=== PATIENT | male | born 1975 | race Two or more races ===

== ENCOUNTER 2018-08-26 18:15 | Emergency (ER) | payer OTHER ==
[2018-08-26 18:59] LABS: BASOPHILS % (AUTO) 0.3 % (0.0-5.0); EOSINOPHILS % (AUTO) 0.3 % (0.0-8.0); HEMATOCRIT 44.6 % (42-54); LYMPHOCYTES % (AUTO) 7.6 % (21.0-51.0); MEAN CORPUSCULAR HEMOGLOBIN 32.9 pg (27.0-33.0); MEAN CORPUSCULAR HGB CONC 34.5 g/dL (32.0-36.0); MEAN CORPUSCULAR VOLUME 95.3 fL (79-99); MONOCYTES % (AUTO) 8.8 % (3.0-13.0); PLATELET COUNT (AUTO) 261 K/uL (130-400); RED BLOOD CELL COUNT(AUTO) 4.68 MIL/uL (4.50-6.20); RED CELL DISTRIBUTION WIDTH 12.3 % (11.0-15.5); WHITE BLOOD COUNT (AUTO) 11.8 K/uL (4.8-10.8)
[2018-08-26 19:11] LABS: CREATININE 1.6 mg/dL (0.5-1.5); POTASSIUM 4.2 mmol/L (3.5-5.1)
[2018-08-26] MEDS ORDERED: SODIUM CHLORIDE 0.9% 1000ML 1,000 ML IV ONE (19:24)
[2018-08-26] MEDS ORDERED: ACETAMINOPHEN 325 MG TAB ONE (19:24)
[2018-08-26] MEDS ORDERED: INSULIN HUMULIN R 100 UNIT/ML 3ML ONE (19:53)
[2018-08-26] MEDS ORDERED: CEFTRIAXONE SODIUM 1 GM ONE (20:52)
[2018-08-26] MEDS ORDERED: SODIUM CHLORIDE 0.9% 50 ML IV ONE (20:52)
[2018-08-26 21:00] LABS: APPEARANCE,URINE Clear (CLEAR); BILIRUBIN,URINE Negative (NEGATIVE); COLOR,URINE Yellow (YELLOW); GLUCOSE, URINE (UA) >=1000 mg/dL (NEGATIVE); KETONES,URINE Trace mg/dL (NEGATIVE); LEUKOCYTE ESTERASE ,URINE Negative (NEGATIVE); NITRATE,URINE Negative (NEGATIVE); OCCULT BLOOD,URINE Negative (NEGATIVE); PROTEIN,URINE Negative (NEGATIVE); UROBILINOGEN,URINE 0.2 mg/dL (0.2-1.0)
[2018-08-26 21:16] LABS: BACTERIA,URINE Rare /HPF (None Seen); RBC,URINE None Seen /HPF (0-1); SQUAMOUS EPITHELIAL CELL,UR None Seen /HPF (0-2); WBC,URINE 0-1 /HPF (0-1)
== END 2018-08-26 21:13 | disposition home or self-care (01) ==
LOC: EDH 18:15
DX: N50.812 Left testicular pain (principal); E11.9 Type 2 diabetes mellitus without complications; E78.5 Hyperlipidemia, unspecified; Z87.891 Personal history of nicotine dependence
CPT/HCPCS: 36415; 76870; 80048; 81001; 85025; 96374; 96375; 99285; J0696; J1815; J7030

== ENCOUNTER 2018-08-28 10:41 | Inpatient (IN) | payer OTHER ==
[~2018-08-28] VITALS: Ht 182.9 cm; Wt 98.9 kg
[2018-08-28 12:12] LABS: BASOPHILS % (AUTO) 0.4 % (0.0-5.0); EOSINOPHILS % (AUTO) 0.2 % (0.0-8.0); HEMATOCRIT 41.4 % (42-54); LYMPHOCYTES % (AUTO) 4.7 % (21.0-51.0); MEAN CORPUSCULAR HEMOGLOBIN 32.9 pg (27.0-33.0); MEAN CORPUSCULAR HGB CONC 34.8 g/dL (32.0-36.0); MEAN CORPUSCULAR VOLUME 94.5 fL (79-99); MONOCYTES % (AUTO) 8.7 % (3.0-13.0); PLATELET COUNT (AUTO) 234 K/uL (130-400); RED BLOOD CELL COUNT(AUTO) 4.38 MIL/uL (4.50-6.20); RED CELL DISTRIBUTION WIDTH 12.2 % (11.0-15.5); WHITE BLOOD COUNT (AUTO) 15.3 K/uL (4.8-10.8)
[2018-08-28] MEDS ORDERED: ONDANSETRON HCL 4 MG/2 ML VIAL ONE (12:16)
[2018-08-28] MEDS ORDERED: MORPHINE SULFATE 4 MG/1ML SYG ONE ×2 (12:17→15:59)
[2018-08-28] MEDS ORDERED: SODIUM CHLORIDE 0.9% 1000ML 1,000 ML IV ONE ×2 (12:17→16:51)
[2018-08-28 12:18] LABS: CREATININE 1.7 mg/dL (0.5-1.5); POTASSIUM 5.3 mmol/L (3.5-5.1)
[2018-08-28] MEDS ORDERED: IOHEXOL-350 75 ML VIAL IV ONE (12:21)
[2018-08-28] MEDS ORDERED: ZOSYN 3.375GM+NS 50ML 50 ML IV ONE (15:54)
[2018-08-28] MEDS ORDERED: SODIUM CHLORIDE 0.9% 50 ML IV ONE (15:55)
[2018-08-28] MEDS: SODIUM CHLORIDE 0.9% 1000ML 1,000 ML IV SCH (16:20)
[2018-08-28] MEDS ORDERED: HYDRALAZINE HCL 20 MG/ML VIAL IV PRN (16:30)
[2018-08-28] MEDS ORDERED: VANCOMYCIN PROTOCOL PER PHARMACY IV PRN (16:30)
[2018-08-28] MEDS ORDERED: ONDANSETRON HCL 4 MG/2 ML VIAL IV PRN (16:30)
[2018-08-28] MEDS ORDERED: LACTULOSE 20 GM/30 ML UDCUP PO PRN (16:30)
[2018-08-28] MEDS ORDERED: ZOLPIDEM TARTRATE 5 MG TAB PO PRN (16:30)
[2018-08-28] MEDS: INSULIN LISPRO 100 UNIT/ML 3ML SQ SCH (17:00)
[2018-08-28] MEDS ORDERED: VANCOMYCIN 1GM+NS 250ML 250 ML IV ONE (17:17)
[2018-08-28 17:35] LABS: HEMOGLOBIN A1C 9.4 % (4.0-6.0)
[2018-08-28] MEDS ORDERED: KETOROLAC TROMETHAMINE 30MG/ML ONE (17:39)
[2018-08-28 19:41] VITALS: BP 129/90
[2018-08-28] MEDS: ZOSYN 3.375GM+NS 50ML 50 ML IV SCH (20:23)
[2018-08-28] MEDS: FAMOTIDINE/PF 20 MG/2 ML VIAL IV SCH (20:23)
[2018-08-28] MEDS: INSULIN GLARGINE 100 UNITS/ML 10 ML VIAL SQ SCH (20:38)
[2018-08-28] MEDS: MORPHINE SULFATE 4 MG/1ML SYG IV PRN (20:41)
[2018-08-28] MEDS: VANCOMYCIN 1GM+NS 250ML 250 ML IV SCH (21:19)
[2018-08-28] MEDS ORDERED: INSLAN SQ (22:14)
[2018-08-28] MEDS: ACETAMINOPHEN 325 MG TAB PO PRN (23:32)
[2018-08-28 23:35] VITALS: BP 117/74
[2018-08-29 00:19] LABS: APPEARANCE,URINE Clear (CLEAR); BILIRUBIN,URINE Negative (NEGATIVE); COLOR,URINE Yellow (YELLOW); GLUCOSE, URINE (UA) >=1000 mg/dL (NEGATIVE); KETONES,URINE 40 mg/dL (NEGATIVE); LEUKOCYTE ESTERASE ,URINE Negative (NEGATIVE); NITRATE,URINE Negative (NEGATIVE); OCCULT BLOOD,URINE Small (NEGATIVE); PH,URINE 5.5 (5.0-8.0); PROTEIN,URINE POS 2+ (NEGATIVE)
[2018-08-29] MEDS: MORPHINE SULFATE 4 MG/1ML SYG IV PRN ×5 (00:53→20:22)
[2018-08-29 01:00] LABS: BACTERIA,URINE None Seen /HPF (None Seen); MUCUS,URINE Moderate LPF (None Seen); RBC,URINE 0-1 /HPF (0-1); SQUAMOUS EPITHELIAL CELL,UR Moderate /HPF (0-2); WBC,URINE None Seen /HPF (0-1)
[2018-08-29 04:00] VITALS: BP 115/75
[2018-08-29] MEDS: ZOSYN 3.375GM+NS 50ML 50 ML IV SCH ×3 (04:56→20:22)
[2018-08-29 05:38] LABS: HEMATOCRIT 36.8 % (42-54); MEAN CORPUSCULAR HEMOGLOBIN 32.1 pg (27.0-33.0); MEAN CORPUSCULAR HGB CONC 33.8 g/dL (32.0-36.0); MEAN CORPUSCULAR VOLUME 94.9 fL (79-99); PLATELET COUNT (AUTO) 187 K/uL (130-400); RED BLOOD CELL COUNT(AUTO) 3.88 MIL/uL (4.50-6.20); RED CELL DISTRIBUTION WIDTH 12.3 % (11.0-15.5); WHITE BLOOD COUNT (AUTO) 11.1 K/uL (4.8-10.8)
[2018-08-29 05:42] LABS: HEMOGLOBIN A1C 9.8 % (4.0-6.0)
[2018-08-29 05:53] LABS: CREATININE 1.6 mg/dL (0.5-1.5); POTASSIUM 4.6 mmol/L (3.5-5.1)
[2018-08-29 06:01] LABS: CRP QUANTITATIVE 453.3 mg/L (0.00-9.0)
[2018-08-29] MEDS: VANCOMYCIN 1GM+NS 250ML 250 ML IV SCH ×2 (06:28→18:05)
[2018-08-29] MEDS: INSULIN LISPRO 100 UNIT/ML 3ML SQ SCH ×3 (06:28→18:05)
[2018-08-29] MEDS: SODIUM CHLORIDE 0.9% 1000ML 1,000 ML IV SCH ×3 (06:34→20:29)
[2018-08-29 08:52] VITALS: BP 121/83
[2018-08-29] MEDS ORDERED: SODIUM CHLORIDE 0.9% 1000ML 1,000 ML IV SCH (08:52)
[2018-08-29] MEDS: FAMOTIDINE/PF 20 MG/2 ML VIAL IV SCH ×2 (09:42→20:22)
[2018-08-29] MEDS: ENOXAPARIN SODIUM 40 MG/0.4 ML SYRINGE SQ SCH (09:42)
[2018-08-29] MEDS: ACETAMINOPHEN 325 MG TAB PO PRN (11:11)
[2018-08-29 12:04] VITALS: BP 115/68
[2018-08-29 16:40] VITALS: BP 126/75
[2018-08-29] MEDS: ACETAMINOPHEN-CODEINE 300/30MG TAB PO PRN (18:03)
[2018-08-29 20:00] VITALS: BP 122/75
[2018-08-29] MEDS: INSULIN GLARGINE 100 UNITS/ML 10 ML VIAL SQ SCH (20:29)
[2018-08-29 23:32] VITALS: BP 147/84
[2018-08-30] VITALS (31 sets, daily range): BP systolic 99–168; BP diastolic 73–102
[2018-08-30] MEDS: MORPHINE SULFATE 4 MG/1ML SYG IV PRN ×4 (01:29→20:46)
[2018-08-30 04:07] LABS: HEMATOCRIT 34.9 % (42-54); MEAN CORPUSCULAR HEMOGLOBIN 32.5 pg (27.0-33.0); MEAN CORPUSCULAR HGB CONC 34.1 g/dL (32.0-36.0); MEAN CORPUSCULAR VOLUME 95.2 fL (79-99); PLATELET COUNT (AUTO) 235 K/uL (130-400); RED BLOOD CELL COUNT(AUTO) 3.67 MIL/uL (4.50-6.20); RED CELL DISTRIBUTION WIDTH 12.7 % (11.0-15.5)
[2018-08-30 04:18] LABS: CREATININE 1.5 mg/dL (0.5-1.5); POTASSIUM 4.6 mmol/L (3.5-5.1)
[2018-08-30] MEDS: ZOSYN 3.375GM+NS 50ML 50 ML IV SCH ×3 (04:58→20:45)
[2018-08-30] MEDS: SODIUM CHLORIDE 0.9% 1000ML 1,000 ML IV SCH ×3 (05:00→20:55)
[2018-08-30] MEDS ORDERED: COMPOUND IV REFRIGERATED 1 EACH IVSOLN MISC PRN (06:45)
[2018-08-30] MEDS: INSULIN LISPRO 100 UNIT/ML 3ML SQ SCH ×3 (07:30→17:30)
[2018-08-30] MEDS: VANCOMYCIN 1.5 GM in SODIUM CHLORIDE 0.9% 250 ML IV SCH ×2 (07:34→17:20)
[2018-08-30] MEDS ORDERED: ONDANSETRON HCL 4 MG/2 ML VIAL ONE (08:12)
[2018-08-30] MEDS ORDERED: DEXAMETHASONE SOD PHOSPHATE 10MG/ML 1ML VIAL ONE (08:12)
[2018-08-30] MEDS ORDERED: LIDOCAINE PF 2% 5ML ABBOJECT ONE (08:12)
[2018-08-30] MEDS ORDERED: MIDAZOLAM HCL 1 MG/ML 2ML VIAL ONE ×2 (08:12→08:19)
[2018-08-30] MEDS ORDERED: PROPOFOL 10 MG/ML 20ML VIAL IV ONE (08:13)
[2018-08-30] MEDS ORDERED: FENTANYL CITRATE PF 50 MCG/1 ML 2ML VIAL ONE ×3 (08:13→08:54)
[2018-08-30] MEDS ORDERED: KETAMINE 50MG/ML SYRINGE 50 MG/ML DISP.SYRIN IV ONE (08:48)
[2018-08-30] MEDS ORDERED: MEPERIDINE-PF 25 MG/ML SYG ONE ×2 (09:30→09:40)
[2018-08-30] MEDS ORDERED: KETOROLAC TROMETHAMINE 30MG/ML ONE (09:52)
[2018-08-30] MEDS: FAMOTIDINE/PF 20 MG/2 ML VIAL IV SCH ×2 (12:06→20:45)
[2018-08-30] MEDS: ENOXAPARIN SODIUM 40 MG/0.4 ML SYRINGE SQ SCH (12:07)
[2018-08-30] MEDS ORDERED: SODIUM CHLORIDE 0.9% 50 ML IV ONE (20:39)
[2018-08-30] MEDS: INSULIN GLARGINE 100 UNITS/ML 10 ML VIAL SQ SCH (21:00)
[2018-08-31] VITALS: BP 147/94
[2018-08-31] MEDS: MORPHINE SULFATE 4 MG/1ML SYG IV PRN ×2 (02:01→08:14)
[2018-08-31 04:00] VITALS: BP 154/89
[2018-08-31 04:39] LABS: HEMATOCRIT 32.6 % (42-54); MEAN CORPUSCULAR HEMOGLOBIN 31.9 pg (27.0-33.0); MEAN CORPUSCULAR HGB CONC 33.4 g/dL (32.0-36.0); MEAN CORPUSCULAR VOLUME 95.3 fL (79-99); NUCLEATED RED BLOOD CELLS 0.1 % (0.0-0.19); PLATELET COUNT (AUTO) 205 K/uL (130-400); RED BLOOD CELL COUNT(AUTO) 3.42 MIL/uL (4.50-6.20); RED CELL DISTRIBUTION WIDTH 12.7 % (11.0-15.5); WHITE BLOOD COUNT (AUTO) 9.6 K/uL (4.8-10.8)
[2018-08-31 04:58] LABS: CREATININE 1.5 mg/dL (0.5-1.5); POTASSIUM 4.1 mmol/L (3.5-5.1)
[2018-08-31] MEDS: ZOSYN 3.375GM+NS 50ML 50 ML IV SCH ×3 (05:44→22:09)
[2018-08-31] MEDS: VANCOMYCIN 1.5 GM in SODIUM CHLORIDE 0.9% 250 ML IV SCH ×2 (05:44→19:22)
[2018-08-31] MEDS: SODIUM CHLORIDE 0.9% 1000ML 1,000 ML IV SCH (05:58)
[2018-08-31] MEDS: INSULIN LISPRO 100 UNIT/ML 3ML SQ SCH ×3 (07:38→16:38)
[2018-08-31] MEDS: FAMOTIDINE/PF 20 MG/2 ML VIAL IV SCH ×2 (08:14→22:09)
[2018-08-31] MEDS: ENOXAPARIN SODIUM 40 MG/0.4 ML SYRINGE SQ SCH (08:15)
[2018-08-31] MEDS: ACETAMINOPHEN 325 MG TAB PO PRN (08:15)
[2018-08-31 08:23] VITALS: BP 138/74
[2018-08-31 12:13] VITALS: BP 139/86
[2018-08-31 16:01] VITALS: BP 138/93
[2018-08-31] MEDS: MORPHINE SULFATE 2 MG/ML 1ML SYG IV PRN ×2 (16:31→23:11)
[2018-08-31 20:00] VITALS: BP 153/91
[2018-08-31] MEDS: INSULIN GLARGINE 100 UNITS/ML 10 ML VIAL SQ SCH (23:07)
[2018-09-01] VITALS (24 sets, daily range): BP systolic 114–149; BP diastolic 70–96
[2018-09-01] MEDS: MORPHINE SULFATE 4 MG/1ML SYG IV PRN ×3 (03:02→23:56)
[2018-09-01 05:03] LABS: HEMATOCRIT 30.6 % (42-54); MEAN CORPUSCULAR HEMOGLOBIN 33.3 pg (27.0-33.0); MEAN CORPUSCULAR HGB CONC 35.4 g/dL (32.0-36.0); MEAN CORPUSCULAR VOLUME 94.1 fL (79-99); PLATELET COUNT (AUTO) 255 K/uL (130-400); RED BLOOD CELL COUNT(AUTO) 3.25 MIL/uL (4.50-6.20); RED CELL DISTRIBUTION WIDTH 12.9 % (11.0-15.5); WHITE BLOOD COUNT (AUTO) 7.5 K/uL (4.8-10.8)
[2018-09-01 05:07] LABS: CREATININE 1.4 mg/dL (0.5-1.5); POTASSIUM 3.8 mmol/L (3.5-5.1)
[2018-09-01] MEDS: ZOSYN 3.375GM+NS 50ML 50 ML IV SCH (06:25)
[2018-09-01] MEDS: VANCOMYCIN 1.5 GM in SODIUM CHLORIDE 0.9% 250 ML IV SCH (06:25)
[2018-09-01] MEDS: INSULIN LISPRO 100 UNIT/ML 3ML SQ SCH ×3 (07:30→18:32)
[2018-09-01] MEDS: ENOXAPARIN SODIUM 40 MG/0.4 ML SYRINGE SQ SCH (08:01)
[2018-09-01] MEDS: FAMOTIDINE/PF 20 MG/2 ML VIAL IV SCH ×2 (08:12→20:48)
[2018-09-01] MEDS: SODIUM CHLORIDE 0.9% 1000ML 1,000 ML IV SCH ×2 (08:12→08:33)
[2018-09-01] MEDS ORDERED: LIDOCAINE PF 2% 5ML ABBOJECT ONE (08:27)
[2018-09-01] MEDS ORDERED: FENTANYL CITRATE PF 50 MCG/1 ML 2ML VIAL ONE ×2 (08:28→08:40)
[2018-09-01] MEDS ORDERED: MIDAZOLAM HCL 1 MG/ML 2ML VIAL ONE (08:28)
[2018-09-01] MEDS ORDERED: PROPOFOL 10 MG/ML 20ML VIAL IV ONE ×2 (08:28→08:39)
[2018-09-01] MEDS ORDERED: FENTANYL CITRATE PF 50 MCG/1 ML 5ML AMP IV ONE (08:57)
[2018-09-01] MEDS ORDERED: METOCLOPRAMIDE 10 MG/2 ML VIAL ONE (09:18)
[2018-09-01] MEDS ORDERED: MEPERIDINE-PF 25 MG/ML SYG ONE (09:39)
[2018-09-01] MEDS: CEFTRIAXONE SODIUM 1 GM IVP SCH (13:50)
[2018-09-01] MEDS: ACETAMINOPHEN-CODEINE 300/30MG TAB PO PRN (15:00)
[2018-09-01] MEDS: INSULIN GLARGINE 100 UNITS/ML 10 ML VIAL SQ SCH (19:43)
[2018-09-02] MEDS: SODIUM CHLORIDE 0.9% 1000ML 1,000 ML IV SCH ×2 (01:05→13:54)
[2018-09-02] MEDS: ACETAMINOPHEN-CODEINE 300/30MG TAB PO PRN ×2 (02:33→16:34)
[2018-09-02 03:00] VITALS: BP 141/94
[2018-09-02 04:37] LABS: HEMATOCRIT 31.8 % (42-54); MEAN CORPUSCULAR HEMOGLOBIN 32.4 pg (27.0-33.0); MEAN CORPUSCULAR HGB CONC 34.3 g/dL (32.0-36.0); MEAN CORPUSCULAR VOLUME 94.4 fL (79-99); PLATELET COUNT (AUTO) 255 K/uL (130-400); RED BLOOD CELL COUNT(AUTO) 3.37 MIL/uL (4.50-6.20); WHITE BLOOD COUNT (AUTO) 5.9 K/uL (4.8-10.8)
[2018-09-02 04:47] LABS: BAND NEUTROPHILS % (MANUAL) 11 % (0-2); LYMPHOCYTES % (MANUAL) 16 % (22-44); MAN.DIFF COMMENT-IMPRESSION MANUAL DIFFERENTIAL; METAMYELOCYTES % 1 % (0-0); MONOCYTES % (MANUAL) 11 % (2-9); PLATELET MORPHOLOGY COMMENT ADEQUATE; REACTIVE LYMPHOCYTES 2 % (0-0); SEGMENTED NEUTROPHILS % 59 % (40-70)
[2018-09-02 04:50] LABS: ALBUMIN 2.2 g/dL (3.5-5.0); BILIRUBIN,TOTAL 0.4 mg/dL (0.2-1.0); CREATININE 1.3 mg/dL (0.5-1.5); POTASSIUM 4.1 mmol/L (3.5-5.1); TOTAL PROTEIN, SERUM 6.8 g/dL (6.0-8.3)
[2018-09-02] MEDS: INSULIN LISPRO 100 UNIT/ML 3ML SQ SCH ×3 (07:44→16:51)
[2018-09-02 08:00] VITALS: BP 146/86
[2018-09-02] MEDS: FAMOTIDINE/PF 20 MG/2 ML VIAL IV SCH ×2 (09:51→20:46)
[2018-09-02] MEDS: ENOXAPARIN SODIUM 40 MG/0.4 ML SYRINGE SQ SCH (09:53)
[2018-09-02] MEDS: MORPHINE SULFATE 4 MG/1ML SYG IV PRN (09:54)
[2018-09-02 11:46] VITALS: BP 149/86
[2018-09-02] MEDS: CEFTRIAXONE SODIUM 1 GM IVP SCH (13:54)
[2018-09-02 16:00] VITALS: BP 140/85
[2018-09-02] MEDS: MORPHINE SULFATE 2 MG/ML 1ML SYG IV PRN (18:15)
[2018-09-02 20:00] VITALS: BP 126/79
[2018-09-02] MEDS: INSULIN GLARGINE 100 UNITS/ML 10 ML VIAL SQ SCH (20:47)
[2018-09-02 23:46] VITALS: BP 140/79
[2018-09-03] MEDS: MORPHINE SULFATE 4 MG/1ML SYG IV PRN (02:22)
[2018-09-03 03:57] VITALS: BP 132/66
[2018-09-03 05:32] LABS: BASOPHILS % (AUTO) 0.7 % (0.0-5.0); EOSINOPHILS % (AUTO) 1.8 % (0.0-8.0); HEMATOCRIT 32.4 % (42-54); MEAN CORPUSCULAR HEMOGLOBIN 32.9 pg (27.0-33.0); MEAN CORPUSCULAR HGB CONC 34.7 g/dL (32.0-36.0); MONOCYTES % (AUTO) 12.9 % (3.0-13.0); NEUTROPHILS % (AUTO) 64.6 % (40.0-77.0); PLATELET COUNT (AUTO) 320 K/uL (130-400); RED BLOOD CELL COUNT(AUTO) 3.42 MIL/uL (4.50-6.20); RED CELL DISTRIBUTION WIDTH 12.9 % (11.0-15.5); WHITE BLOOD COUNT (AUTO) 6.6 K/uL (4.8-10.8)
[2018-09-03 05:43] LABS: CREATININE 1.4 mg/dL (0.5-1.5); POTASSIUM 4.1 mmol/L (3.5-5.1)
[2018-09-03] MEDS: MORPHINE SULFATE 2 MG/ML 1ML SYG IV PRN (06:42)
[2018-09-03] MEDS: SODIUM CHLORIDE 0.9% 1000ML 1,000 ML IV SCH ×2 (06:53→14:35)
[2018-09-03] MEDS: INSULIN LISPRO 100 UNIT/ML 3ML SQ SCH ×3 (06:56→17:59)
[2018-09-03 08:19] VITALS: BP 132/77
[2018-09-03] MEDS: METRONIDAZOLE 500 MG TABLET PO SCH ×2 (08:58→17:54)
[2018-09-03] MEDS: FAMOTIDINE/PF 20 MG/2 ML VIAL IV SCH ×2 (08:58→20:56)
[2018-09-03] MEDS: ENOXAPARIN SODIUM 40 MG/0.4 ML SYRINGE SQ SCH (08:59)
[2018-09-03 11:34] VITALS: BP 129/86
[2018-09-03] MEDS: CEFTRIAXONE SODIUM 1 GM IVP SCH (13:14)
[2018-09-03] MEDS: ACETAMINOPHEN-CODEINE 300/30MG TAB PO SCH ×2 (14:31→20:56)
[2018-09-03 16:37] VITALS: BP 132/84
[2018-09-03 20:00] VITALS: BP 148/86
[2018-09-03] MEDS ORDERED: MORPHINE SULFATE 2 MG/ML 1ML SYG IV PRN (20:30)
[2018-09-03] MEDS: INSULIN GLARGINE 100 UNITS/ML 10 ML VIAL SQ SCH (20:59)
[2018-09-04] VITALS (23 sets, daily range): BP systolic 92–146; BP diastolic 55–88
[2018-09-04] MEDS: METRONIDAZOLE 500 MG TABLET PO SCH ×3 (00:06→16:57)
[2018-09-04] MEDS: MORPHINE SULFATE 2 MG/ML 1ML SYG IV PRN ×2 (03:41→06:28)
[2018-09-04] MEDS: ACETAMINOPHEN-CODEINE 300/30MG TAB PO SCH ×3 (05:06→21:53)
[2018-09-04 05:39] LABS: BASOPHILS % (AUTO) 0.6 % (0.0-5.0); EOSINOPHILS % (AUTO) 1.6 % (0.0-8.0); HEMATOCRIT 32.2 % (42-54); LYMPHOCYTES % (AUTO) 19.9 % (21.0-51.0); MEAN CORPUSCULAR HEMOGLOBIN 32.6 pg (27.0-33.0); MEAN CORPUSCULAR HGB CONC 34.5 g/dL (32.0-36.0); MEAN CORPUSCULAR VOLUME 94.6 fL (79-99); MONOCYTES % (AUTO) 10.6 % (3.0-13.0); NEUTROPHILS % (AUTO) 67.3 % (40.0-77.0); PLATELET COUNT (AUTO) 311 K/uL (130-400); RED CELL DISTRIBUTION WIDTH 12.6 % (11.0-15.5)
[2018-09-04 05:51] LABS: CREATININE 1.2 mg/dL (0.5-1.5); POTASSIUM 3.9 mmol/L (3.5-5.1)
[2018-09-04] MEDS: INSULIN LISPRO 100 UNIT/ML 3ML SQ SCH ×3 (07:30→14:55)
[2018-09-04] MEDS: ENOXAPARIN SODIUM 40 MG/0.4 ML SYRINGE SQ SCH ×2 (09:14→14:43)
[2018-09-04] MEDS: FAMOTIDINE/PF 20 MG/2 ML VIAL IV SCH ×2 (09:14→21:43)
[2018-09-04] MEDS: SODIUM CHLORIDE 0.9% 1000ML 1,000 ML IV SCH ×2 (11:47→23:26)
[2018-09-04] MEDS ORDERED: FENTANYL CITRATE PF 50 MCG/1 ML 2ML VIAL ONE ×2 (12:16→12:43)
[2018-09-04] MEDS ORDERED: PROPOFOL 10 MG/ML 20ML VIAL IV ONE ×2 (12:16→12:47)
[2018-09-04] MEDS ORDERED: LIDOCAINE PF 2% 5ML ABBOJECT ONE (12:16)
[2018-09-04] MEDS ORDERED: MIDAZOLAM HCL 1 MG/ML 2ML VIAL ONE (12:16)
[2018-09-04] MEDS ORDERED: DEXAMETHASONE SOD PHOSPHATE 10MG/ML 1ML VIAL ONE (12:16)
[2018-09-04] MEDS ORDERED: ONDANSETRON HCL 4 MG/2 ML VIAL ONE (12:16)
[2018-09-04] MEDS: CEFTRIAXONE SODIUM 1 GM IVP SCH ×2 (12:45→13:14)
[2018-09-04] MEDS ORDERED: MEPERIDINE-PF 25 MG/ML SYG ONE (13:30)
[2018-09-04] MEDS: MORPHINE SULFATE 4 MG/1ML SYG IV PRN ×2 (14:45→21:53)
[2018-09-04] MEDS: INSULIN GLARGINE 100 UNITS/ML 10 ML VIAL SQ SCH (21:43)
[2018-09-04] MEDS ORDERED: SODIUM CHLORIDE 0.9% 1000ML 1,000 ML IV ONE (22:15)
[2018-09-04] MEDS ORDERED: INSULIN HUMULIN R 100 UNIT/ML 3ML SQ ONE (22:15)
[2018-09-05] MEDS: METRONIDAZOLE 500 MG TABLET PO SCH ×3 (01:44→18:09)
[2018-09-05] MEDS: MORPHINE SULFATE 4 MG/1ML SYG IV PRN (01:54)
[2018-09-05 04:00] VITALS: BP 120/67
[2018-09-05] MEDS: INSULIN HUMULIN R 100 UNIT/ML 3ML SQ SCH ×3 (06:32→16:30)
[2018-09-05] MEDS: INSULIN LISPRO 100 UNIT/ML 3ML SQ SCH ×3 (06:33→17:00)
[2018-09-05] MEDS: ACETAMINOPHEN-CODEINE 300/30MG TAB PO SCH (06:35)
[2018-09-05 07:00] VITALS: BP 111/73
[2018-09-05] MEDS: FAMOTIDINE/PF 20 MG/2 ML VIAL IV SCH (10:03)
[2018-09-05] MEDS: ENOXAPARIN SODIUM 40 MG/0.4 ML SYRINGE SQ SCH (10:03)
[2018-09-05] MEDS ORDERED: HYDROCODONE/ACETAMINOPHEN 10/325 MG TAB PO PRN (10:30)
[2018-09-05 11:00] VITALS: BP 121/81
[2018-09-05] MEDS: ACETAMINOPHEN-CODEINE 300/30MG TAB PO PRN ×2 (11:45→18:09)
[2018-09-05] MEDS: CEFTRIAXONE SODIUM 1 GM IVP SCH (13:50)
[2018-09-05 16:00] VITALS: BP_SYST 111; BP_SYST 125; BP_DIAS 72; BP_DIAS 73
== END 2018-09-05 18:38 | disposition home health service (06) | DRG 720 ==
LOC: EDH 10:41 → EDHIP 10:42 → 3CH 17:55
PROVIDERS: ADMIT Internal Medicine; ATTEND Internal Medicine
PROC: 0V9500Z Drainage of Scrotum with Drainage Device, Open Approach (ICD-10-PCS; principal; 2018-08-30 08:00)
PROC: 0VB50ZZ Excision of Scrotum, Open Approach (ICD-10-PCS; 2018-09-02)
DX: A41.50 Gram-negative sepsis, unspecified (principal); M72.6 Necrotizing fasciitis; N17.9 Acute kidney failure, unspecified; E11.65 Type 2 diabetes mellitus with hyperglycemia; N49.2 Inflammatory disorders of scrotum; N43.3 Hydrocele, unspecified; R59.1 Generalized enlarged lymph nodes; D64.9 Anemia, unspecified; E78.00 Pure hypercholesterolemia, unspecified; E78.5 Hyperlipidemia, unspecified; N50.89 Other specified disorders of the male genital organs; E66.9 Obesity, unspecified; Z68.29 Body mass index [BMI] 29.0-29.9, adult; Z72.0 Tobacco use; Z83.3 Family history of diabetes mellitus; Z80.8 Family history of malignant neoplasm of other organs or systems; Z82.49 Family history of ischemic heart disease and other diseases of the circulatory system
CPT/HCPCS: 36415; 74177; 76870; 80048; 80053; 80061; 80202; 81001; 82948; 83036; 83605; 85025; 85027; 86140; 87040; 87070; 87076; 87077; 87186; 87486; 87797; 96374; 96375; 97039; A4218; J0696; J1100; J1650; J1815; J1885; J2001; J2175; J2250; J2270; J2405; J2543; J2704; J2765; J3010; J3370; J3490; J7030; Q9967

== ENCOUNTER → 2025-07-31 | Outpatient (CLI) | payer OTHER ==
[~2025-07-31] MED LIST: INSLAN SQ
--- NOTE | 2025-08-01 06:38 | HMCIMG ---
EXAM: CT Cardiac calcium scoring. CLINICAL HISTORY: Screening. TECHNIQUE: Thin collimated axial CT cardiac images were obtained. A CT scan is done according to ALARA (As Low As Reasonably Achievable). CONTRAST: None. COMPARISON: None provided. FINDINGS: Calcium Score: VESSEL Number of lesions Volume mm3 Equi. Mass/mg Calcium score LM 2 64.8 - 75.6 LAD 2 47.6 - 67.9 LCX 3 155.2 - 185.1 RCA 1 24.5 - 32.6 Total 8 292.0 - 361.3 IMPRESSION: The total calcium score is 361.3. 97th percentile. /Bryce
== END | disposition home or self-care (01) ==
LOC: RAH 12:23
PROVIDERS: ATTEND Internal Medicine
DX: Z13.6 Encounter for screening for cardiovascular disorders (principal)
CPT/HCPCS: 75571